=== PATIENT | male | born 1945 | race Caucasian/White ===

== ENCOUNTER 2018-12-31 15:29 | Emergency (ER) | payer MEDICARE, OTHER ==
[~2018-12-31] VITALS: Ht 182.9 cm; Wt 86.4 kg
[2018-12-31 15:48] VITALS: BP 167/100
[2018-12-31] MEDS ORDERED: cyclobenzaprine 10mg tablet PO ONE (16:05)
[2018-12-31] MEDS ORDERED: naproxen 500mg tablet PO ONE (16:05)
[2018-12-31] MEDS ORDERED: NAPR250T4 PO (16:14)
[2018-12-31] MEDS ORDERED: CYCL-1 PO (16:14)
== END 2018-12-31 16:35 | disposition home or self-care (01) ==
LOC: ER 15:29
DX: M47.892 Other spondylosis, cervical region (principal); Z98.890 Other specified postprocedural states; Z79.899 Other long term (current) drug therapy
CPT/HCPCS: 72040; 99283

== ENCOUNTER 2024-12-11 14:03 | Emergency (ER) | payer MEDICARE, BC ==
[~2024-12-11] VITALS: Ht 180.3 cm; Wt 97.1 kg
[~2024-12-11 14:03] MED LIST: CYCL-1 PO; NAPR-1170 PO
--- NOTE | 2024-12-11 15:26 | Physician Documentation ---
History of Present Illness ~ Chief Complaint: Leg Pain Stated Complaint: L LEG PAIN POSS DVT Time Seen by MD: 16:06 OK to notify your PCP?: Yes Primary Medical Doctor: Dr Menjivar Source: patient Mode of Arrival: POV Exam Limitations: no limitations HPI This is a 79-year-old male who presents with left lower extremity pain without swelling or tenderness to palpation, patient reports that he experiences pain in the posterior and anterior left lower leg that he describes as sharp, patient reports pain has been waking up at night. Patient reports no chest pain or shortness of breath. Tetanus witin 5 years: Yes Medication Reconciliation Allergies: Coded Allergies: No Known Allergies (Unverified , 10/08/16) Scheduled Methocarbamol (Methocarbamol), 1 TAB PO HS Naproxen (Naproxen), 1 TAB PO Q12H Scheduled PRN Cyclobenzaprine* (Cyclobenzaprine*), 0.5 TABLET PO HS PRN for muscle spasms Past Medical History Past Medical History: No Pertinent History Past Surgical History: cancer surgery, orthopedic surgeries Drug Use: none Lives with: Family Lives In: Home Physical Exam Vital Signs: Temperature: 98.5, Source: Temporal, Heart Rate: 76, Respiratory Rate: 17, BP: 152/100, Pulse Oximetry: 96, Weight: 97.100 Oxygen Flow Rate: 0 Physical Exam VITALS: Reviewed and as above. GENERAL: Alert, nontoxic appearing, no apparent distress. RESPIRATORY: No increased work of breathing, no respiratory distress, speaking in full clear sentences MUSCULOSKELETAL: Left lower extremity No edema, no ecchymosis, no erythema, nontender to palpation General Appearance: alert, WD/WN, no apparent distress Respiratory No accessory muscle use or retractions. Lungs are clear to auscultation in all aguirre. Legs To inspection of the bilateral lower extremities no obvious edema, change in skin color or temperature. The patient points to the left leg as the area of pain. There was no tenderness or obvious cords to palpation of the calf muscle. Negative Homans sign. No pitting edema. No change in skin color or temperature to palpation. Left dorsalis pedis pulses 2+ and cap refill less than 2 seconds and brisk in the digits of the left foot. Progress Results/Orders Reviewed/noted all lab results: Yes Results/Orders Orders - RUSTY EMERY PA Vl Venous (12/11/24 16:06) Completed Orders - RUSTY EMERY Vl Venous (12/11/24 16:06) Vital Signs 12/11/24 14:13 Temp 98.5 Pulse 76 Resp 17 B/P (MAP) 152/100 Pulse Ox 96 O2 Flow Rate 0 Medical Decision Making Findings MSE performed in triage and patient returned to ED lobby by nursing staff Doppler ultrasound left lower extremity did not show evidence of DVT. I have little clinical suspicion for DVT as the patient was areas the pain and complaints down more consistent with the nighttime leg cramps. I told the patient I gave him a prescription for a muscle relaxer in his she had increased foods and drinks with the electrolytes and keep himself well hydrated. You can massages legs as well. Follow up with the primary care physician for recheck in the next one or two days and return to the ER for any worsening or concerning symptoms Additional Comment Leg cramps. Muscle spasm. Low clinical suspicion for DVT. Departure Disposition: HOME / SELF CARE / HOMELESS Impression: Primary Impression: Leg cramps, sleep related Condition: Stable Discharge Instructions: Leg Cramps Additional Instructions: I will prescribe a muscle relaxer you can take before bed. I also suggest keep herself well hydrated and eat foods and drink drinks a half electrolytes. Massage and stretch your legs. Follow up with the primary care physician for recheck in the next one or two days and return to the ER for any worsening or concerning symptoms. Referrals: NO PRIMARY CARE PROVIDER (PCP) Prescriptions Methocarbamol (Methocarbamol) 750 Mg Tablet 1 TAB PO HS for muscle spasm, #20 TAB 0 Refills Prov: RUSYT EMERY 12/11/24 Signature Scribe Signature: No scribe Attestation: The note accurately reflects work and decisions made by me.Rusty WHITING 12/11/24 17:18 NADER WILLIS Dec 11, 2024 15:26 RUSTY EMERY Dec 11, 2024 16:12
[2024-12-11] MEDS ORDERED: METH-798 PO (17:18)
--- NOTE | 2024-12-11 17:30 | VASCULAR REPORT ---
PROCEDURE: Left lower extremity VASC VL VENOUS Exam Date: 12/11/2024 04:45 PM History: DVT Findings: Technique: Duplex Doppler evaluation of the superficial veins of the left and left lower extremities was perform ed including color Doppler and spectral/pulsed waveform analysis. Findings: No DVT in the left lower extremity Impression: 1. No DVT
[2024-12-11 18:36] VITALS: BP 156/98; PULSE 78; RESP 18; TEMP 98.5; O2SAT 96
== END 2024-12-11 18:20 | disposition home or self-care (01) ==
LOC: ER 14:04
DX: G47.62 Sleep related leg cramps (principal)
CPT/HCPCS: 93971; 99284